=== PATIENT | female | born 1980 | race American Indian/Alaskan Native ===

== ENCOUNTER 2019-09-24 13:49 | Emergency (ER) | payer MEDICAID ==
--- NOTE | 2019-09-24 14:33 | Emergency Department Report ---
Chief Complaint: Animal Bite Stated Complaint: POSS SCABBIES Time Seen by Provider: 09/24/19 14:19 - HPI History of Present Illness: Patient is a 39-year-old F [place] female who was told to come to the emergency department to be treated for scabies. Patient states that her daughter's daycare had a scabies outbreak. Patient was under the understanding that she had to be treated as well. Her daughter was treated a few [facility]. Patient has no rash. She states she has a little bit of itching on her face after being told that there was scabies present but again she has no rash. - ROS Review of Systems: All other systems are reviewed and are negative - Exam Physical Exam: Patient is alert and oriented x3. Skin exam shows no rash. There is no papules in between her digits MSE screening note: Focused history and physical exam performed. Due to findings the following was ordered: ED Medical Decision Making - Medical Decision Making Patient has no medical emergency at this time and does not appear that she actually has active scabies. Patient given outpatient resources. ED Disposition for MSE Clinical Impression: Scabies exposure Disposition: MED SCREENING EXAM-LEFT Is pt being admited?: No Does the pt Need Aspirin: No Condition: Stable Time of Disposition: 14:32
== END 2019-09-24 15:03 | disposition left against medical advice (07) ==
LOC: ED 13:49
DX: Z20.89 Contact with and (suspected) exposure to other communicable diseases (principal)
CPT/HCPCS: 99281